=== PATIENT | female | born 1990 | race Caucasian/White ===

== ENCOUNTER 2018-01-30 04:00 | Emergency (ER) | payer OTHER ==
[2018-01-30 04:30] LABS: ADD MAN DIFF? NO
[2018-01-30 04:34] LABS: BASO # 0.1 x10^3/uL (0.0-0.2); BASO % 1 % (0-3); EOS # 0.1 x10^3/uL (0.0-0.7); EOS % 1 % (0-3); HEMOGLOBIN 12.1 g/dL (12.0-15.5); LYMPH # 1.6 x10^3/uL (1.0-4.8); LYMPH % 14 % (24-48); MEAN CORPUSCULAR HEMOGLOBIN 27 pg (25-35); MEAN CORPUSCULAR HGB CONC 34 g/dL (31-37); MEAN CORPUSCULAR VOLUME 80 fL (79-100); MONO # 0.5 x10^3/uL (0.0-1.1); MONO % 5 % (0-9); NEUT # 8.8 x10^3uL (1.8-7.7); NEUT % 79 % (31-73); PLATELET COUNT 351 x10^3/uL (140-400); RED BLOOD COUNT 4.52 x10^6/uL (3.50-5.40); RED CELL DISTRIBUTION WIDTH 15.9 % (11.5-14.5); WHITE BLOOD COUNT 11.2 x10^3/uL (4.0-11.0)
[2018-01-30 04:43] LABS: PROTHROMBIN TIME PATIENT 12.7 SEC (11.7-14.0)
[2018-01-30 04:44] LABS: ANION GAP 7 (6-14); BLOOD UREA NITROGEN 17 mg/dL (7-20); BUN/CREATININE RATIO 19 (6-20); CALCIUM 8.5 mg/dL (8.5-10.1); CARBON DIOXIDE 28 mmol/L (21-32); CHLORIDE 102 mmol/L (98-107); CREATININE 0.9 mg/dL (0.6-1.0); GLUCOSE 118 mg/dL (70-99); POTASSIUM 4.5 mmol/L (3.5-5.1); SODIUM 137 mmol/L (136-145)
[2018-01-30 04:46] LABS: D-DIMER 2.51 ug/mlFEU (0.00-0.50)
[2018-01-30 04:51] LABS: ALBUMIN 3.3 g/dL (3.4-5.0); ALBUMIN/GLOBULIN RATIO 0.8 (1.0-1.7); ALK PHOS 97 U/L (46-116); ALT (SGPT) 30 U/L (14-59); AST (SGOT) 16 U/L (15-37); TOTAL BILIRUBIN 0.2 mg/dL (0.2-1.0); TOTAL PROTEIN 7.3 g/dL (6.4-8.2)
[2018-01-30 04:54] LABS: TROPONINI < 0.017 ng/mL (0.000-0.055)
[2018-01-30] MEDS: KETOROLAC 15 MG/ML VIAL. IV (05:25)
[2018-01-30] MEDS: IOHEXOL 300 MG/ML 100ML VIAL. IV (05:43)
[2018-01-30] MEDS ORDERED: CONTRAST GIVEN. MC (05:45)
[2018-01-30] MEDS: ONDANSETRON PF 4 MG/2 ML VIAL. IV (06:52)
== END 2018-01-30 07:02 | disposition home or self-care (01) ==
LOC: ER 04:00
DX: R07.89 Other chest pain (principal); R11.2 Nausea with vomiting, unspecified; R00.0 Tachycardia, unspecified; F41.9 Anxiety disorder, unspecified; F32.9 Major depressive disorder, single episode, unspecified; Z88.5 Allergy status to narcotic agent; Z91.040 Latex allergy status
CPT/HCPCS: 36415; 71045; 71275; 80053; 84484; 84702; 85025; 85379; 85610; 93005; 96374; 96375; 99285-25; J1885; J2405; Q9967

== ENCOUNTER 2020-10-31 12:16 | Emergency (ER) | payer BC, OTHER ==
[~2020-10-31] VITALS: Ht 172.7 cm; Wt 153.2 kg
[~2020-10-31 12:16] MED LIST: FAMO20TA5 PO; ONDA4TAB10 SL; ONDA4TAB7 PO; TRAM-48 PO
[2020-10-31 13:58] LABS: BILIRUBIN,URINE NEGATIVE (NEG); CLARITY,URINE CLEAR; COLOR,URINE YELLOW; NITRITE,URINE NEGATIVE (NEG); PH,URINE 5.5 (<5.0-8.0); PROTEIN,URINE NEGATIVE (NEG-TRACE); UROBILINOGEN,URINE 0.2 mg/dL (0.2 mg/dL)
[2020-10-31 14:06] LABS: AMORPHOUS SEDIMENT,UR PRESENT /HPF; BACTERIA,URINE 0 /HPF (0-FEW); RBC,URINE 0 /HPF (0-2)
[2020-10-31 15:02] VITALS: BP 128/81
--- NOTE | 2020-10-31 15:14 | RAD ---
EXAM: Pelvic sonogram. HISTORY: Right lower quadrant pain. TECHNIQUE: Transabdominal and transvaginal sonographic imaging of the pelvis was performed. COMPARISON: None. FINDINGS: The exam is limited due to patient body habitus. The left kidney is reportedly surgically a bsent. There is no lesion within the left adnexa. The right ovary demonstrates normal size and blood flow. There is an IUD within the endometrial cavity. The uterus is normal in size and the endometrial stripe is normal in thickness. There are nabothian cysts within the cervix. There is no pelvic free fluid. IMPRESSION: 1. Nonvisualization of the left ovary. The patient reports prior left oophorectomy. 2. IUD in expected position. 3. No acute sonographic finding. Electronically signed by: Yanelis Gardner MD (10/31/2020 3:12 PM) [id number]
[2020-10-31 15:20] LABS: BASO % 0 % (0-3); EOS # 0.4 x10^3/uL (0.0-0.7); EOS % 3 % (0-3); HEMOGLOBIN 14.1 g/dL (12.0-15.5); LYMPH # 3.2 x10^3/uL (1.0-4.8); LYMPH % 25 % (24-48); MEAN CORPUSCULAR HEMOGLOBIN 29 pg (25-35); MEAN CORPUSCULAR HGB CONC 34 g/dL (31-37); MEAN CORPUSCULAR VOLUME 85 fL (79-100); MONO # 0.7 x10^3/uL (0.0-1.1); MONO % 5 % (0-9); NEUT # 8.6 x10^3/uL (1.8-7.7); NEUT % 67 % (31-73); PLATELET COUNT 351 x10^3/uL (140-400); RED BLOOD COUNT 4.94 x10^6/uL (3.50-5.40); RED CELL DISTRIBUTION WIDTH 14.1 % (11.5-14.5); WHITE BLOOD COUNT 12.9 x10^3/uL (4.0-11.0)
[2020-10-31 15:24] LABS: U PREG PATIENT NEGATIVE (NEG)
[2020-10-31 15:36] LABS: CALCIUM 8.8 mg/dL (8.5-10.1); CREATININE 0.8 mg/dL (0.6-1.0); GFR 83.1; POTASSIUM 3.7 mmol/L (3.5-5.1)
[2020-10-31 15:41] LABS: ALBUMIN 3.1 g/dL (3.4-5.0); ALBUMIN/GLOBULIN RATIO 0.7 (1.0-1.7); TOTAL BILIRUBIN 0.2 mg/dL (0.2-1.0); TOTAL PROTEIN 7.3 g/dL (6.4-8.2)
[2020-10-31] MEDS ORDERED: IOHEXOL 300 MG/ML 100ML VIAL. IV ONE (16:00)
[2020-10-31] MEDS ORDERED: CONTRAST GIVEN. MC PRN (16:00)
[2020-10-31] MEDS ORDERED: ONDANSETRON PF 4 MG/2 ML VIAL. IVP ONE (16:15)
[2020-10-31] MEDS ORDERED: fentaNYL PF VIAL 100 MCG/2 ML VIAL IVP ONE (16:15)
--- NOTE | 2020-10-31 16:15 | PHYS DOC ---
Past Medical History Past Medical History: No Pertinent History, Anxiety, Depression Past Surgical History: , Oophorectomy, Tonsillectomy Additional Past Surgical Histo: LYMPH NODE REMOVAL Smoking Status: Never Smoker Alcohol Use: Rarely Drug Use: None General Adult EDM: Chief Complaint: BACK PAIN - NO INJURY HPI: HPI: Patient is a 30 year old with history of depression presents emergency department for abdominal pain and back pain. Patient reports that this started 2 nights ago. She woke up in the middle the night felt a pain in the lower back. Radiates around to the lower abdomen. She did have some vaginal spotting which is not abnormal for her. She has an IUD. The day she has had increasing vaginal bleeding. No vaginal discharge. Lower back pain that is worse with laying down and walking. No nausea vomiting diarrhea constipation dysuria hemat uria chest pain shortness of breath fever chills cough numbness weakness. 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 Patient has had sections. No other abdominal surgeries. Patient referred to hospital for work-up. Patient denies bowel or bladder incontinence. No saddle anesthesia. No fevers. Review of Systems: Review of Systems: Review of Systems: Constitutional: Denies fever or chills Eyes: Denies redness or eye pain HENT: Denies nasal congestion or sore throat Respiratory: Denies cough or shortness of breath Cardiovascular: Denies chest pain or palpitations GI: denies nausea, denies vomiting or diarrhea : Denies dysuria or hematuria Musculoskeletal: Denies back pain or joint pain Integument: Denies rash or skin lesions Neurologic: Denies headache, focal weakness or sensory changes Heart Score: C/O Chest Pain: No Current Medications: Current Medications Medications (Trade) Dose Ordered Sig/Kimberly Start Time Stop Time Status Last Admin Dose Admin Info (CONTRAST GIVEN -- Rx MONITORING) 1 each PRN DAILY PRN 10/31/20 16:00 11/02/20 15:59 Iohexol (Omnipaque 300 Mg/ml) 75 ml 1X ONCE 10/31/20 16:00 10/31/20 16:01 DC 10/31/20 16:03 75 ML Allergies: Allergies: Allergies Coded Allergies Type Severity Reaction Last Updated Verified Latex, Natural Rubber Allergy Intermediate 08/09/15 Yes codeine Allergy Intermediate Itching 08/17/16 Yes Physical Exam: PE: *GENERAL APPEARANCE: Awake and alert. Cooperative. No acute distress. Non toxic appearing. HEAD: Normocephalic. Atraumatic. EYES: EOM's grossly intact. Sclera anicteric. Conjunctiva clear ENT:. Airway patent. Mucous membranes moist. No trismus. Tolerating secretions. NECK: Supple. Trachea midline. HEART: Regular rate and rhythm. Radial pulses 2+. Good capillary refill. LUNGS: Respirations unlabored. Clear to auscultation bilaterally. No rales, rhon chi, wheezing or retractions. ABDOMEN: Soft. Right lower quadrant abdominal tenderness no guarding or rebound. No CVA tenderness. No palpable or pulsatile mass. Right lower quadrant abdominal tenderness. Back: No tenderness palpation of cervical, thoracic or lumbar spine. Tenderness palpation over the right lower back. EXTREMITIES: No acute deformities. No edema, erythema or calf tenderness. SKIN: Warm and dry. No rash. NEUROLOGICAL: Alert and oriented x3. No gross neurological deficits. Moves all 4 extremities spontaneously. PSYCHIATRIC: Normal mood. Current Patient Data: Labs: Laboratory Tests Test 10/31/20 13:39 10/31/20 15:02 Urine Collection Type Unknown Urine Color Yellow Urine Clarity Clear Urine pH 5.5 (<5.0-8.0) Urine Specific [place] >=1.030 (1.000-1.030) Urine Protein Negative mg/dL (NEG-TRACE) Urine Glucose (UA) Negative mg/dL (NEG) Urine Ketones (Stick) Negative mg/dL (NEG) Urine Blood Negative (NEG) Urine Nitrite Negative (NEG) Urine Bilirubin Negative (NEG) Urine Urobilinogen Dipstick 0.2 mg/dL (0.2 mg/dL) Urine Leukocyte Esterase Negative (NEG) Urine RBC 0 /HPF (0-2) Urine WBC 1-4 /HPF (0-4) Urine Squamous Epithelial Cells Few /LPF Urine Amorphous Sediment Present /HPF Urine Bacteria 0 /HPF (0-FEW) Urine Mucus Mod /LPF Urine Test Negative (NEG) White Blood Count 12.9 x10^3/uL (4.0-11.0) H Red Blood Count 4.94 x10^6/uL (3.50-5.40) Hemoglobin 14.1 g/dL (12.0-15.5) Hematocrit 42.0 % (36.0-47.0) Mean Corpuscular Volume 85 fL (79-100) Mean Corpuscular Hemoglobin 29 pg (25-35) Mean Corpuscular Hemoglobin Concent 34 g/dL (31-37) Red Cell Distribution Width 14.1 % (11.5-14.5) Platelet Count 351 x10^3/uL (140-400) Neutrophils (%) (Auto) 67 % (31-73) Lymphocytes (%) (Auto) 25 % (24-48) Monocytes (%) (Auto) 5 % (0-9) Eosinophils (%) (Auto) 3 % (0-3) Basophils (%) (Auto) 0 % (0-3) Neutrophils # (Auto) 8.6 x10^3/uL (1.8-7.7) H Lymphocytes # (Auto) 3.2 x10^3/uL (1.0-4.8) Monocytes # (Auto) 0.7 x10^3/uL (0.0-1.1) Eosinophils # (Auto) 0.4 x10^3/uL (0.0-0.7) Basophils # (Auto) 0.0 x10^3/uL (0.0-0.2) Sodium Level 141 mmol/L (136-145) Potassium Level 3.7 mmol/L (3.5-5.1) Chloride Level 107 mmol/L (98-107) Carbon Dioxide Level 24 mmol/L (21-32) Anion Gap 10 (6-14) Blood Urea Nitrogen 14 mg/dL (7-20) Creatinine 0.8 mg/dL (0.6-1.0) Estimated GFR (Cockcroft-Gault) 83.1 BUN/Creatinine Ratio 18 (6-20) Glucose Level 91 mg/dL (70-99) Calcium Level 8.8 mg/dL (8.5-10.1) Total Bilirubin 0.2 mg/dL (0.2-1.0) Aspartate Amino Transferase (AST) 12 U/L (15-37) L Alanine Aminotransferase (ALT) 20 U/L (14-59) Alkaline Phosphatase 87 U/L (46-116) Total Protein 7.3 g/dL (6.4-8.2) Albumin 3.1 g/dL (3.4-5.0) L Albumin/Globulin Ratio 0.7 (1.0-1.7) L Laboratory Tests 10/31/20 15:02 Laboratory Tests 10/31/20 15:02 EKG: EKG: [] Radiology/Procedures: Radiology/Procedures: PATIENT: SHANITA BRITTON ACCOUNT: [id number] : 1990 LOCATION: ER AGE: 30 SEX: F EXAM STATUS: REG ER ORD. PHYSICIAN: NADIYA PAIGE DO REASON: RLQ pain, r/o torsion PROCEDURE: PELVIS W/TV EXAM: Pelvic sonogram. HISTORY: Right lower quadrant pain. TECHNIQUE: Transabdominal and transvaginal sonographic imaging of the pelvis was performed. COMPARISON: None. FINDINGS: The exam is limited due to patient body habitus. The left kidney is reportedly surgically absent. There is no lesion within the left adnexa. The right ovary demonstrates normal size and blood flow. There is an IUD within the endometrial cavity. The uterus is normal in size and the endometrial stripe is normal in thickness. There are nabothian cysts within the cervix. There is no pelvic free fluid. IMPRESSION: 1. Nonvisualization of the left ovary. The patient reports prior left oophorectomy. 2. IUD in expected position. 3. No acute sonographic finding. Electronically signed by: Yanelis Taylor MD (10/31/2020 3:12 PM) [id number] DICTATED and SIGNED BY: YANELIS TAYLOR MD DATE: 10/31/20 [id number] PATIENT: SHANITA BRITTON ACCOUNT: [id number] : 1990 LOCATION: ER AGE: 30 SEX: F EXAM STATUS: REG ER ORD. PHYSICIAN: NADIYA PAIGE DO REASON: RLQ pain PROCEDURE: CT ABD PELV W/ IV CONTRST ONLY EXAM: CT Abdomen and Pelvis with IV contrast CLINICAL HISTORY: Right lower quadrant pain COMPARISON: none TECHNIQUE: Helical CT of the abdomen and pelvis was performed following the administration of intravenous contrast. Axial, coronal and sagittal reformatted images were generated. PQRS compliance statement - One or more of the following individualized dose red uction techniques were utilized for this study: 1. Automated exposure control 2. Adjustment of the mA and/or kV according to patient size 3. Use of iterative reconstruction technique FINDINGS: Lower Chest: 3 mm left lower lobe lung nodule is seen. Abdomen and Pelvis: No focal liver lesion. Gallbladder is normal. Spleen is unremarkable. Adrenal glands are normal. Pancreas is unremarkable. Symmetric nephrograms. No focal renal lesion. No hydronephrosis. No hydroureter. Bladder is decompressed. IUD is seen within the uterus. Appendix is retroflexed, normal. Moderate colonic stool content is seen. No small or large bowel dilatation. No bowel obstruction. Rectosigmoid is decompressed. Right adnexa is prominent, asymmetric to the left. No abdominal or pelvic ascites. No abdominal or pelvic lymphadenopathy. Aorta is normal in caliber. Bones: Straightening of the normal lumbar lordosis. No aggressive osseous lesion is seen. No spondylolisthesis. IMPRESSION: Appendix is normal. Prominence of the right adnexa, possibly physiologic for this patient. This can be further assessed by ultrasound if clinically indicated. Electronically signed by: Parmjit Galloway MD (10/31/2020 4:29 PM) [facility] DICTATED and SIGNED BY: PARMJIT GALLOWAY MD DATE: 10/31/20 [id number] 0 Course & Med Decision Making: Course & Med Decision Making Patient is a 30-year-old female presented to emergency department for abdominal pain that started 2 nights ago. Here in the emergency department patient appeared in no acute distress. Her vital signs were stable. She was sent from urgent care as patient had some right lower quadrant abdominal tenderness. That was where most of her tenderness was on exam. She has had some increased vagi nal bleeding. Patient was ordered pain medication but unfortunately she drove herself to the emergency department so we gave her Toradol instead. On laboratory evaluation patient did have white blood cell count of 12. Electrolytes were stable. Patient was not . Her urine did not appear infected. Patient initially had pelvic ultrasound that shows left oophorectomy which is consistent with patient's history. IUD which was in place. The right ovary was normal. No cysts. No free felt pelvic fluid. Normal blood flow. Patient did undergo CT of the abdomen and pelvis. While awaiting scan results patient reports she had to go. She wanted her IV out and wanted to leave. I was able to briefly discuss with the patient that we are waiting for her CT of her abdomen pelvis and that I would like full imaging prior to making a disposition. Patient understands that I do not have all the information to be able to discharge her appropriately. She did sign out AGAINST MEDICAL ADVICE as we were still waiting for her imaging for proper disposition. Patient was awake alert oriented could answer my questions and follow all my commands. Did have capacity to make her own decisions. I did tell the patient I would call her with these results. Patient reports that her and her work opposite shifts and she needs to get home to take care of her children. She could not stay. at 1845: I did call the patient. CT abdomen showed normal appendix. Prominence of the right adnexa possibly physiologic for this patient. Patient had already had ultrasound. I discussed all the findings with the patient. I discussed the slight leukocytosis. I discussed doing a pelvic exam as the next step in her management. Patient is now at home and is caring for her children and cannot return. I did discuss return when able. I discussed follow-up with family physician as soon as possible. Patient understands she can return anytime to complete evaluation. She does need to be reevaluated soon as possible. Patient is agreeable. All of her questions were answered Nikko Disclaimer: Nikko Disclaimer: This electronic medical record was generated, in whole or in part, using a voice recognition dictation system. Departure Departure Impression: Primary Impression: Abdominal pain Disposition: LEFT AGAINST MEDICAL ADVICE Condition: GOOD Referrals: LEORA REYNOLDS (PCP) NADIYA PAIGE DO Oct 31, 2020 16:15
--- NOTE | 2020-10-31 16:31 | RAD ---
EXAM: CT Abdomen and Pelvis with IV contrast CLINICAL HISTORY: Right lower quadrant pain COMPARISON: none TECHNIQUE: Helical CT of the abdomen and pelvis was performed following the administration of intrave nous contrast. Axial, coronal and sagittal reformatted images were generated. PQRS compliance statement - One or more of the following individualized dose reduction techniques wer e utilized for this study: 1. Automated exposure control 2. Adjustment of the mA and/or kV according to patient size 3. Use of iterative reconstruction technique FINDINGS: Lower Chest: 3 mm left lower lobe lung nodule is seen. Abdomen and Pelvis: No focal liver lesion. Gallbladder is normal. Spleen is unremarkable. Adrenal glands are normal. Panc reas is unremarkable. Symmetric nephrograms. No focal renal lesion. No hydronephrosis. No hydroureter . Bladder is decompressed. IUD is seen within the uterus. Appendix is retroflexed, normal. Moderate c olonic stool content is seen. No small or large bowel dilatation. No bowel obstruction. Rectosigmoid is decompressed. Right adnexa is prominent, asymmetric to the left. No abdominal or pelvic ascites. N o abdominal or pelvic lymphadenopathy. Aorta is normal in caliber. Bones: Straightening of the normal lumbar lordosis. No aggressive osseous lesion is seen. No spondylolisthes is. IMPRESSION: Appendix is normal. Prominence of the right adnexa, possibly physiologic for this patient. This can be further assessed b y ultrasound if clinically indicated. Electronically signed by: Parmjit Rocha MD (10/31/2020 4:29 PM) [facility]
[2020-10-31] MEDS ORDERED: KETOROLAC 30 MG/ML VIAL. IVP ONE (16:45)
== END 2020-10-31 18:00 | disposition left against medical advice (07) ==
LOC: ER 12:16
DX: R10.31 Right lower quadrant pain (principal); M54.5 Low back pain; N89.8 Other specified noninflammatory disorders of vagina; F41.9 Anxiety disorder, unspecified; F32.9 Major depressive disorder, single episode, unspecified; Z90.89 Acquired absence of other organs; Z98.890 Other specified postprocedural states; Z88.5 Allergy status to narcotic agent; Z91.040 Latex allergy status
CPT/HCPCS: 36415; 74177; 76830; 76856; 80053; 81001; 81025; 85025; 96374; 96375; 99285; J1885; J2405; Q9967